=== PATIENT | female | born 1985 | race Two or more races ===

== ENCOUNTER 2022-06-13 03:34 | Emergency (ER) | payer OTHER ==
[~2022-06-13] VITALS: Ht 165.1 cm; Wt 82.1 kg
[2022-06-13] MEDS ORDERED: PRENATAL CAPLE1 EAC1 (03:50)
== END 2022-06-13 06:43 | disposition home or self-care (01) ==
LOC: ER 03:34
DX: O20.8 Other hemorrhage in early pregnancy (principal); Z3A.10 10 weeks gestation of pregnancy

== ENCOUNTER 2022-11-22 07:33 | Inpatient (IN) | payer OTHER ==
[~2022-11-22] VITALS: Ht 165.1 cm; Wt 90.7 kg
[~2022-11-22 07:33] MED LIST: PRENATAL CAPLE1 EAC1
[2022-11-22] MEDS ORDERED: ADULT LOW DOSE81 M1 PO (09:19)
[2022-11-22] MEDS ORDERED: PROCARDIA PO (09:20)
== END 2022-11-24 17:48 | disposition home or self-care (01) | DRG 807 ==
LOC: LDR 07:33 → OB/GYN 07:33 → LDR 14:42 → OB/GYN 15:47
PROVIDERS: ADMIT Obstetrics & Gynecology Obstetrics; ATTEND Obstetrics & Gynecology Obstetrics
PROC: 10E0XZZ Delivery of Products of Conception, External Approach (ICD-10-PCS; principal; 2022-11-22)
PROC: 0W8NXZZ Division of Female Perineum, External Approach (ICD-10-PCS; 2022-11-22)
PROC: 4A1HXCZ Monitoring of Products of Conception, Cardiac Rate, External Approach (ICD-10-PCS; 2022-11-22)
PROC: BY4CZZZ Ultrasonography of Second Trimester, Single Fetus (ICD-10-PCS; 2022-11-22)
DX: O60.14X0 Preterm labor third trimester with preterm delivery third trimester, not applicable or unspecified (principal); Z37.0 Single live birth; Z3A.33 33 weeks gestation of pregnancy; Z20.822 Contact with and (suspected) exposure to COVID-19